=== PATIENT | female | born 1975 | race Caucasian/White ===

== ENCOUNTER 2018-01-30 18:50 | Emergency (ER) | payer OTHER ==
[2018-01-30] MEDS ORDERED: Ketorolac 60 MG/2 ML SDV IM ONE (19:28)
--- NOTE | 2018-01-30 21:10 | EDM.PDOC ---
ED HPI GENERAL MEDICAL PROBLEM - General Chief Complaint: Back Pain or Injury Stated Complaint: LOWER BACK PAIN Time Seen by Provider: 01/30/18 21:08 Source of Information: Reports: Patient - History of Present Illness INITIAL COMMENTS - FREE TEXT/NARRATIVE: HISTORY AND PHYSICAL: History of present illness: Patient with history of low back pain and disc bulge of lumbar spine presents with low back pain after moving, she just moved from [place] hence moving for such her luggage S etc., She complains of low back pain nonradiating no radiculopathy no fever nausea vomiting chills sweats no footdrop bowel symptoms or saddle anesthesia no urine symptoms No new trauma [] Review of systems: As per history of present illness and below otherwise all systems reviewed and negative. Past medical history: As per history of present illness and as reviewed below otherwise noncontributory. Surgical history: As per history of present illness and as reviewed below otherwise noncontributory. Social history: No reported history of drug or alcohol abuse. Family history: As per history of present illness and as reviewed below otherwise noncontributory. Physical exam: HEENT: Atraumatic, normocephalic, pupils reactive, negative for conjunctival pallor or scleral icterus, mucous membranes moist, throat clear, neck supple, nontender, trachea midline. Lungs: Clear to auscultation, breath sounds equal bilaterally, chest nontender. Heart: S1S2, regular, negative for clicks, rubs, or JVD. Abdomen: Soft, nondistended, nontender. Negative for masses or hepatosplenomegaly. Negative for costovertebral tenderness. Pelvis: Stable nontender. Genitourinary: Deferred. Rectal: Deferred. Extremities: Atraumatic, negative for cords or calf pain. Neurovascular unremarkable. Neuro: Awake, alert, oriented. Cranial nerves II through XII unremarkable. Cerebellum unremarkable. Motor and sensory unremarkable throughout. Exam nonfocal.Footdrop or saddle anesthesia Diagnostics: [Bar spine ] Therapeutics: [ has failed [id number] symptomatic therapies [place] Beatrice 20 no refill ] Impression: [ acute on chronic low back pain ] Definitive disposition and diagnosis as appropriate pending reevaluation and review of above. 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: Musculoskeletal History: Reports: Back Pain, Chronic - Past Surgical History Female Surgical History: Reports: D&C Other Musculoskeletal Surgeries/Procedures:: Herniated disc's L4-L5 Social & Family History - Family History Family Medical History: Noncontributory - Tobacco Use Smoking Status *Q: Current Every Day Smoker Years of Tobacco use: 25 Packs/Tins Daily: 1 - Caffeine Use Caffeine Use: Reports: Soda - Recreational Drug Use Recreational Drug Use: No ED ROS GENERAL - Review of Systems Review Of Systems: See Below ED EXAM, GENERAL - Physical Exam Exam: See Below Course - Vital Signs Last Recorded V/S: Last Vital Signs Temp 97.5 F 01/30/18 19:04 Pulse 102 H 01/30/18 19:04 Resp 18 01/30/18 19:04 BP 92/65 01/30/18 19:04 Pulse Ox 96 01/30/18 19:04 - Orders/Labs/Meds Orders: Active Orders 24 hr Category Date Time Status Lumbar Spine wo Cont [CT] Stat Exams 01/30/18 19:27 Taken HCG QUALITATIVE,URINE [URCHEM] Stat Lab 01/30/18 19:49 Ordered UA W/MICROSCOPIC [URIN] Stat Lab 01/30/18 19:49 Ordered Labs: Laboratory Tests 01/30/18 01/30/18 Range/Units 19:49 19:49 Urine Color YELLOW Urine Appearance HAZY Urine pH 6.5 (5.0-8.0) Ur Specific [place] 1.015 (1.001-1.035) Urine Protein NEGATIVE (NEGATIVE) mg/dL Urine Glucose (UA) NEGATIVE (NEGATIVE) mg/dL Urine Ketones TRACE H (NEGATIVE) mg/dL Urine Occult Blood SMALL H (NEGATIVE) Urine Nitrite NEGATIVE (NEGATIVE) Urine Bilirubin NEGATIVE (NEGATIVE) Urine Urobilinogen 1.0 (<2.0) EU/dL Ur Leukocyte Esterase NEGATIVE (NEGATIVE) Urine RBC 4-6 (0-2/HPF) Urine WBC 0-2 (0-5/HPF) Ur Epithelial Cells MODERATE (NONE-FEW) Urine Bacteria FEW (NEGATIVE) Urine HCG, Qual NEGATIVE (NEGATIVE) Meds: Medications Discontinued Medications Generic Name Dose Route Start Last Admin Trade Name Mian PRN Reason Stop Dose Admin Ketorolac Tromethamine 60 mg 01/30/18 19:28 01/30/18 19:53 Toradol IM 01/30/18 19:29 60 mg ONETIME ONE Administration Departure - Departure Time of Disposition: 21:09 Disposition: Home, Self-Care 01 Condition: Good Clinical Impression: Acute exacerbation of chronic low back pain - Discharge Information Referrals: PCP,Not In Area [Primary Care Provider] - Additional Instructions: Medication as prescribed Return if symptoms persist or worsen Follow-up with primary care in 2 weeks sooner as needed [facility] - Primary [facility] [address] [place] [id number] The following information is given to patients seen in the emergency department who are being discharged to home. This information is to outline your options for follow-up care. We provide all patients seen in our emergency department with a follow-up referral. The need for follow-up, as well as the timing and circumstances, are variable depending upon the specifics of your emergency department visit. If you don't have a primary care physician on staff, we will provide you with a referral. We always advise you to contact your personal physician following an emergency department visit to inform them of the circumstance of the visit and for follow-up with them and/or the need for any referrals to a consulting specialist. The emergency department will also refer you to a specialist when appropriate. This referral assures that you have the opportunity for follow-up care with a specialist. All of these measure are taken in an effort to provide you with optimal care, which includes your follow-up. Under all circumstances we always encourage you to contact your private physician who remains a resource for coordinating your care. When calling for follow-up care, please make the office aware that this follow-up is from your recent emergency room visit. If for any reason you are refused follow-up, please contact the [facility] emergency department at and asked to speak to the emergency department charge nurse. - My Orders Last 24 Hours: My Active Orders 01/30/18 19:27 Lumbar Spine wo Cont [CT] Stat 01/30/18 19:49 HCG QUALITATIVE,URINE [URCHEM] Stat UA W/MICROSCOPIC [URIN] Stat - Assessment/Plan Last 24 Hours: My Active Orders 01/30/18 19:27 Lumbar Spine wo Cont [CT] Stat 01/30/18 19:49 HCG QUALITATIVE,URINE [URCHEM] Stat UA W/MICROSCOPIC [URIN] Stat
--- NOTE | 2018-02-02 15:14 | CT ---
EXAM DATE: 01/30/18 PATIENT'S AGE: 42 Patient: BRIANNA DELA CRUZ Facility: [place], [place] Site . Site : 1975 Study: CT Spine Lumbar [id number]/10/2018 8:23:26 PM Ordering Physician: Norah Street Final Report: HISTORY: Back pain. TECHNIQUE: Noncontrast CT of the lumbar spine. COMPARISON: No prior. FINDINGS: There is no lumbar fracture or lumbar malalignment. Vertebral body height is maintained. - At L5-S1, suspected shallow posterior protrusion. No canal or foraminal stenosis. At L4-L5, mild loss of disc height. Mild annular disc bulge. No significant canal stenosis. Neural foramina patent. At L3-L4, no canal or foraminal stenosis. At L2-L3, no canal or foraminal stenosis. At L1-L2, no canal or foraminal stenosis. At T12-L1, no canal or foraminal stenosis. At T11-T12, mild annular disc bulge. No canal or foraminal stenosis. IMPRESSION: 1. No lumbar fracture. 2. Mild degenerative disc disease within the lower lumbar spine. 3. No central canal or foraminal stenosis. Dictated by Harjinder Porter MD @ 01/30/2018 8:42:22 PM Please note that all CT scans at this facility use dose modulation, iterative reconstruction, and/or weight-based dosing when appropriate to reduce radiation dose to as low as reasonably achievable. Dictated by: Harjinder Porter MD @ 01/30/2018 20:42:26 (Electronic Signature) Report Signed by Proxy. CINTHIA
== END 2018-01-30 21:19 | disposition home or self-care (01) ==
LOC: MW.ED 18:50
DX: M54.5 Low back pain (principal); G89.29 Other chronic pain; F17.210 Nicotine dependence, cigarettes, uncomplicated; Z79.899 Other long term (current) drug therapy; Z88.0 Allergy status to penicillin
CPT/HCPCS: 72131; 81001; 81025; 96372; 99284; J1885

== ENCOUNTER 2018-02-06 14:00 | Emergency (ER) | payer OTHER ==
--- NOTE | 2018-02-06 14:22 | EDM.PDOC ---
ED HPI GENERAL MEDICAL PROBLEM - General Chief Complaint: Back Pain or Injury Stated Complaint: BACK PAIN Time Seen by Provider: 02/06/18 14:20 Source of Information: Reports: Patient - History of Present Illness INITIAL COMMENTS - FREE TEXT/NARRATIVE: HISTORY AND PHYSICAL: History of present illness: Patient with chronic back pain is in for pain rated 8 out of 10 nonradiating today, did initially see her a week ago see my previous note for details is unable to get into the clinic until February 27 No fever nausea vomiting chills sweats no footdrop saddle anesthesia bowel or urine symptoms no new injury or trauma Review of systems: As per history of present illness and below otherwise all systems reviewed and negative. Past medical history: As per history of present illness and as reviewed below otherwise noncontributory. Surgical history: As per history of present illness and as reviewed below otherwise noncontributory. Social history: No reported history of drug or alcohol abuse. Family history: As per history of present illness and as reviewed below otherwise noncontributory. Physical exam: HEENT: Atraumatic, normocephalic, pupils reactive, negative for conjunctival pallor or scleral icterus, mucous membranes moist, throat clear, neck supple, nontender, trachea midline. Lungs: Clear to auscultation, breath sounds equal bilaterally, chest nontender. Heart: S1S2, regular, negative for clicks, rubs, or JVD. Abdomen: Soft, nondistended, nontender. Negative for masses or hepatosplenomegaly. Negative for costovertebral tenderness. Pelvis: Stable nontender. Genitourinary: Deferred. Rectal: Deferred. Extremities: Atraumatic, negative for cords or calf pain. Neurovascular unremarkable. Neuro: Awake, alert, oriented. Cranial nerves II through XII unremarkable. Cerebellum unremarkable. Motor and sensory unremarkable throughout. Exam nonfocal. Diagnostics: [lum bar spine on file from last week ] Therapeutics: [ tamatol #30 ] Impression: [ acute on chronic low back pain ] Definitive disposition and diagnosis as appropriate pending reevaluation and review of above. 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: Musculoskeletal History: Reports: Back Pain, Chronic - Past Surgical History Female Surgical History: Reports: D&C Other Musculoskeletal Surgeries/Procedures:: Herniated disc's L4-L5 Social & Family History - Family History Family Medical History: Noncontributory - Tobacco Use Smoking Status *Q: Current Every Day Smoker Years of Tobacco use: 20 Packs/Tins Daily: 1 - Caffeine Use Caffeine Use: Reports: Soda - Recreational Drug Use Recreational Drug Use: No ED ROS GENERAL - Review of Systems Review Of Systems: See Below ED EXAM, GENERAL - Physical Exam Exam: See Below Course - Vital Signs Last Recorded V/S: Last Vital Signs Temp 97.6 F 02/06/18 14:10 Pulse 93 02/06/18 14:10 Resp 16 02/06/18 14:10 BP 97/64 02/06/18 14:10 Pulse Ox 96 02/06/18 14:10 Departure - Departure Time of Disposition: 14:22 Disposition: Home, Self-Care 01 Condition: Good Clinical Impression: Low back pain - Discharge Information Referrals: PCP,Not In Area [Primary Care Provider] - Additional Instructions: The following information is given to patients seen in the emergency department who are being discharged to home. This information is to outline your options for follow-up care. We provide all patients seen in our emergency department with a follow-up referral. The need for follow-up, as well as the timing and circumstances, are variable depending upon the specifics of your emergency department visit. If you don't have a primary care physician on staff, we will provide you with a referral. We always advise you to contact your personal physician following an emergency department visit to inform them of the circumstance of the visit and for follow-up with them and/or the need for any referrals to a consulting specialist. The emergency department will also refer you to a specialist when appropriate. This referral assures that you have the opportunity for follow-up care with a specialist. All of these measure are taken in an effort to provide you with optimal care, which includes your follow-up. Under all circumstances we always encourage you to contact your private physician who remains a resource for coordinating your care. When calling for follow-up care, please make the office aware that this follow-up is from your recent emergency room visit. If for any reason you are refused follow-up, please contact the [facility] emergency department at and asked to speak to the emergency department charge nurse.
== END 2018-02-06 14:41 | disposition home or self-care (01) ==
LOC: MW.ED 14:00
DX: M54.5 Low back pain (principal); F17.210 Nicotine dependence, cigarettes, uncomplicated; Z88.0 Allergy status to penicillin; Z79.899 Other long term (current) drug therapy
CPT/HCPCS: 99282; 99283

== ENCOUNTER 2020-10-24 06:32 | Day surgery (SDC) | payer BC ==
[~2020-10-24 06:32] MED LIST: Lactated Ringers 1,000 ML IV SCH
[2020-10-24] MEDS ORDERED: Propofol 200 MG/20 ML SDV ONE (06:51)
[2020-10-24] MEDS ORDERED: fentaNYL 100 MCG/2 ML SDV ONE (06:51)
[2020-10-24] MEDS ORDERED: Midazolam 1 MG/ML 2 ML SDV ONE (06:51)
[2020-10-24] MEDS ORDERED: Dexamethasone 4 MG/ML 5 ML MDV ONE (06:53)
[2020-10-24] MEDS ORDERED: Ondansetron 4 MG/2 ML SDV ONE (06:53)
--- NOTE | 2020-10-24 07:13 | PCM.PREANE ---
Preanesthetic Assessment - Anesthesia/Transfusion/Family Hx Anesthesia History: Prior Anesthesia Without Reaction Family History of Anesthesia Reaction: No Transfusion History: No Prior Transfusion(s) - Review of Systems General: No Symptoms Pulmonary: No Symptoms Cardiovascular: No Symptoms Gastrointestinal: No Symptoms Neurological: No Symptoms Other: Reports: None - Physical Assessment NPO Status Date: 10/24/20 NPO Status Time: 00:01 Height: 5 ft 5.5 in Weight: 162 lb ASA Class: 2 Mental Status: Alert & Oriented x3 Airway Class: Mallampati = 2 Dentition: Reports: Normal Dentition ROM/Head Extension: Full Lungs: Clear to Auscultation, Normal Respiratory Effort Cardiovascular: Regular Rate, Regular Rhythm - Lab Values: Laboratory Last Values WBC 6.03 K/uL (4.0-11.0) 10/24/20 06:45 RBC 4.05 M/uL (4.30-5.90) L 10/24/20 06:45 Hgb 13.3 g/dL (12.0-16.0) 10/24/20 06:45 Hct 38.6 % (36.0-46.0) 10/24/20 06:45 MCV 95.3 fL (80.0-98.0) 10/24/20 06:45 MCH 32.8 pg (27.0-32.0) H 10/24/20 06:45 MCHC 34.5 g/dL (31.0-37.0) 10/24/20 06:45 RDW Std Deviation 44.0 fl (28.0-62.0) 10/24/20 06:45 RDW Coeff of Porfirio 13 % (11.0-15.0) 10/24/20 06:45 Plt Count 258 K/uL (150-400) 10/24/20 06:45 MPV 10.20 fL (7.40-12.00) 10/24/20 06:45 Nucleated RBC % 0.0 /100WBC 10/24/20 06:45 Nucleated RBCs # 0 K/uL 10/24/20 06:45 - Allergies Allergies/Adverse Reactions: Allergies Allergy/AdvReac Type Severity Reaction Status Date / Time morphine Allergy Hives Verified 10/24/20 07:08 Penicillins Allergy Dizziness Verified 10/24/20 07:08 - Anesthesia Plan Pre-Op Medication Ordered: None - Acknowledgements Anesthesia Type Planned: General Anesthesia Pt an Appropriate Candidate for the Planned Anesthesia: Yes Alternatives and Risks of Anesthesia Discussed w Pt/Guardian: Yes Pt/Guardian Understands and Agrees with Anesthesia Plan: Yes Additional Comments: npo after mn tob 1/2 ppd etoh rare co cv problems anxiety depression chronic lbp tramadol q 4 hours bmi 27 par no questions adhd PreAnesthesia Questionnaire - Past Health History Medical/Surgical History: Denies Medical/Surgical History HEENT History: Reports: Other (See Below) Other HEENT History: top and bottom dentures Cardiovascular History: Reports: None Respiratory History: Reports: None Gastrointestinal History: Reports: Chronic Constipation, GERD Genitourinary History: Reports: None 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: Musculoskeletal History: Reports: Arthritis, Back Pain, Chronic Neurological History: Reports: Other (See Below) Other Neuro History: herniated lumbar discs Psychiatric History: Reports: ADHD, Anxiety, Depression Endocrine/Metabolic History: Reports: None Hematologic History: Reports: None Immunologic History: Reports: None Oncologic (Cancer) History: Reports: None Dermatologic History: Reports: None - Past Surgical History Head Surgeries/Procedures: Reports: None HEENT Surgical History: Reports: None Cardiovascular Surgical History: Reports: None Respiratory Surgical History: Reports: None GI Surgical History: Reports: None Female Surgical History: Reports: D&C, Other (See Below) Other Female Surgeries/Procedures: hx laparoscopy Endocrine Surgical History: Reports: None Neurological Surgical History: Reports: None Musculoskeletal Surgical History: Reports: None Oncologic Surgical History: Reports: None Dermatological Surgical History: Reports: None - SUBSTANCE USE Tobacco Use Status *Q: Current Every Day Tobacco User Tobacco Use Within Last Twelve Months: Cigarettes, Vaping - HOME MEDS Home Medications: Home Meds Cyclobenzaprine [Flexeril] 5 mg PO BEDTIME 01/30/18 [History] Melatonin 5 mg PO BEDTIME 01/30/18 [History] LORazepam [Ativan] 0.5 mg PO ASDIRECTED PRN 10/18/20 [History] Linaclotide [Linzess] 72 mg PO DAILY 10/18/20 [History] traMADol HCl [Tramadol HCl] 50 mg PO Q6H PRN 10/18/20 [History] Clindamycin HCl 1 tab PO BID 10/23/20 [History] DULoxetine HCl [Duloxetine HCl] 30 mg PO DAILY 10/23/20 [History] - CURRENT (IN HOUSE) MEDS Current Meds: Current Medications Lactated Ringer's (Ringers, Lactated) 1,000 mls @ 125 mls/hr IV ASDIRECTED CHEYANNE Last Admin: 10/24/20 07:07 Dose: 125 mls/hr Documented by: Discontinued Medications Dexamethasone (Dexamethasone 4 Mg/Ml 5 Ml Mdv) Confirm Administered Dose 20 mg .ROUTE .STK-MED ONE Stop: 10/24/20 06:54 Fentanyl (Fentanyl 100 Mcg/2 Ml Sdv) Confirm Administered Dose 100 mcg .ROUTE .STK-MED ONE Stop: 10/24/20 06:52 Lidocaine HCl (Lidocaine 1% 5 Ml Sdv) Confirm Administered Dose 5 ml .ROUTE .STK-MED ONE Stop: 10/24/20 06:54 Midazolam HCl (Midazolam 1 Mg/Ml 2 Ml Sdv) Confirm Administered Dose 2 mg .ROUTE .STK-MED ONE Stop: 10/24/20 06:52 Ondansetron HCl (Ondansetron 4 Mg/2 Ml Sdv) Confirm Administered Dose 4 mg .ROUTE .STK-MED ONE Stop: 10/24/20 06:54 Propofol (Propofol 200 Mg/20 Ml Sdv) Confirm Administered Dose 200 mg .ROUTE .STK-MED ONE Stop: 10/24/20 06:52
[2020-10-24] MEDS ORDERED: Ketorolac 30 MG/ML SDV ONE (07:34)
[2020-10-24] MEDS ORDERED: ePHEDrine 50 MG/ML SDV ONE (08:34)
--- NOTE | 2020-10-24 08:55 | PCM.OPNOTE ---
- General Post-Op/Procedure Note Date of Surgery/Procedure: 10/24/20 Operative Procedure(s): Hysteroscopy dilation and curettage with polypectomy and Mirena IUD insertion Findings: Retroverted uterus sounded to 9cm. Hypertrophic endometrium. Small polyp noted at the anterior aspect near the fundus. Pre Op Diagnosis: 1. Abnormal uterine bleeding. 2. Endometrial polyp Post-Op Diagnosis: 1. Abnormal uterine bleeding. 2. Endometrial polyp Anesthesia Technique: General LMA Primary Surgeon: Marva Young Anesthesia Provider: Rico Yoder Pathology: Endometrial polyp, endometrial curettings Fluid Replacement, Intraop: 800 (crystalloid) Output, Urine Amount: 100 (straight cathed prior to procedure) EBL in mLs: 5 Complications: None known Condition: Good Free Text/Narrative:: Intake & Output 10/23/20 10/24/20 10/24/20 22:59 06:59 14:59 Output Total 100 Balance -100 Fluid deficit during procedure 175cc. Dictation #[id number]
--- NOTE | 2020-10-24 09:06 | PCM.POSTAN ---
POST ANESTHESIA ASSESSMENT - MENTAL STATUS Mental Status: Alert (no anesthetic problems), Oriented - VITAL SIGNS Vital Signs: Last Vital Signs Temp 97.5 F 10/24/20 07:18 Pulse 77 10/24/20 09:01 Resp 14 10/24/20 09:01 BP 101/65 10/24/20 09:01 Pulse Ox 94 L 10/24/20 09:01 - RESPIRATORY Respiratory Status: Respiratory Rate WNL, Airway Patent, O2 Saturation Stable - CARDIOVASCULAR CV Status: Pulse Rate WNL, Blood Pressure Stable - GASTROINTESTINAL GI Status: No Symptoms - POST OP HYDRATION Hydration Status: Adequate & Stable
--- NOTE | 2020-10-24 10:14 | PCM48HPAN ---
Post Anesthesia Note - EVALUATION WITHIN 48HRS OF ANESTHETIC Vital Signs in Normal Range: Yes Patient Participated in Evaluation: Yes Respiratory Function Stable: Yes Airway Patent: Yes Cardiovascular Function Stable: Yes Hydration Status Stable: Yes Pain Control Satisfactory: Yes Nausea and Vomiting Control Satisfactory: Yes Mental Status Recovered: Yes Vital Signs: Last Vital Signs Temp 97.5 F 10/24/20 07:18 Pulse 77 10/24/20 09:01 Resp 14 10/24/20 09:01 BP 101/65 10/24/20 09:01 Pulse Ox 94 L 10/24/20 09:01
--- NOTE | 2020-10-24 13:44 | OR ---
SURGEON: TOMMIE YOUNG MD DATE OF PROCEDURE: 10/24/2020 PREOPERATIVE DIAGNOSES: 1. Abnormal uterine bleeding. 2. Endometrial polyp. POSTOPERATIVE DIAGNOSES: 1. Abnormal uterine bleeding. 2. Endometrial polyp. PROCEDURES: 1. Hysteroscopy dilation and curettage with polypectomy. 2. Mirena intrauterine device insertion. PRIMARY SURGEON: Tommie Young MD ANESTHESIA: LMA. COMPLICATIONS: None known. ESTIMATED BLOOD LOSS: 5 mL. INTRAVENOUS FLUIDS: 800 mL of crystalloid. FLUID DEFICIT: 175 mL. URINE OUTPUT: 100 mL, straight cath prior to procedure. FINDINGS: Retroverted uterus sounded to 9 cm. Hypertrophic endometrium. Small polyp noted at the anterior aspect near the fundus. PATHOLOGY: Endometrial polyp, endometrial curettings. PROCEDURE IN DETAIL: The patient was taken to the operating room where LMA was introduced. She was then prepped and draped in the dorsal lithotomy position. Bimanual exam was performed. The bladder was then drained. An open-sided Graves speculum was then inserted into the vagina to visualize the cervix and was grasped with an Allis clamp at 12 o'clock. The uterus was then sounded to 8 cm, and the cervix was then serially dilated to a 9 Hegar. The MyoSure hysteroscope was then inserted into the cervix and the uterus; however, due to poor visualization, a secondary hysteroscope was used, and better visualization was obtained. Findings noted as above. Left and right ostia were difficult to visualize due to hypertrophic endometrium. Polyp forceps were then used to grasp the polyp in 3 pieces. Specimen was sent to Pathology. The hysteroscope was then removed, and sharp curettage was then performed with a medium Solis curette. This specimen was also sent to Pathology. The IUD insertion device was then prepared and inserted into the cervix and to the uterus until resistance was met at the fundus. The device was then retracted approximately 1 cm, and the arms of the device were deployed. The device was then pushed towards the fundus until resistance was met, and the applicator was then removed, and the strings were cut. Allis was then removed from the cervix. Hemostasis was noted. All instruments were then removed from the vagina, and again, hemostasis was noted. Sponge, lap, and needle count were correct x2. The patient was taken to recovery in stable condition. MARORAC / MODL /[id number] CINTHIA
== END 2020-10-24 09:55 | disposition home or self-care (01) ==
LOC: MW.SDS 06:32
PROVIDERS: ATTEND Obstetrics & Gynecology
DX: N84.0 Polyp of corpus uteri (principal); N76.0 Acute vaginitis; N92.0 Excessive and frequent menstruation with regular cycle; F17.210 Nicotine dependence, cigarettes, uncomplicated; Z79.899 Other long term (current) drug therapy; Z88.0 Allergy status to penicillin; Z88.6 Allergy status to analgesic agent
CPT/HCPCS: 36415; 58558; 84703; 85027; 88305; J1100; J1885; J2250; J2405; J2704; J3010; J7120; 00952

== ENCOUNTER 2022-05-23 16:44 | Emergency (ER) | payer BC ==
[2022-05-23] MEDS ORDERED: predniSONE 20 MG Tab PO ONE (18:51)
[2022-05-23] MEDS ORDERED: Diazepam 5 MG Tab PO ONE (18:52)
[2022-05-23] MEDS ORDERED: Orphenadrine 60 MG/2 ML Inj IM ONE (18:52)
== END 2022-05-23 19:11 | disposition home or self-care (01) ==
LOC: MW.ED 16:44
DX: M54.41 Lumbago with sciatica, right side (principal); M19.90 Unspecified osteoarthritis, unspecified site; Z72.0 Tobacco use; Z88.5 Allergy status to narcotic agent; Z88.0 Allergy status to penicillin; Z79.899 Other long term (current) drug therapy
CPT/HCPCS: 96372; 99283; A9270; J2360